=== PATIENT | female | born 1975 | race Caucasian/White ===

== ENCOUNTER 2020-12-18 00:24 | Emergency (ER) | payer OTHER ==
[~2020-12-18] VITALS: Ht 160 cm; Wt 81.7 kg
[2020-12-18] MEDS ORDERED: ULTRAM 50MG TAB50 MG PO (01:31)
[2020-12-18] MEDS ORDERED: AMOXICILLIN875 MG PO (01:31)
[2020-12-18 01:40] VITALS: BP 121/86
== END 2020-12-18 01:41 | disposition home or self-care (01) ==
LOC: ER 00:24
DX: K02.9 Dental caries, unspecified (principal); Z90.711 Acquired absence of uterus with remaining cervical stump; Z90.49 Acquired absence of other specified parts of digestive tract